=== PATIENT | female | born 1975 | race African-American/Black ===

== ENCOUNTER 2016-06-24 06:44 | Emergency (ER) | payer OTHER ==
--- NOTE | ~2016-06-24 | CT4 ---
[facility] A Service of [facility] & [facility] RADIOLOGY TEXT RESULTS PATIENT: EMMETT LEMA LOCATION: SED : 79 UNIT #: [id number] AGE: [address]: Varun Wong MD SEX: F ORDER DR: [id number] [address] [address] [id number] E MR#: [id number] Acc #: [id number] NAME: EMMETT LEMA : 1975 SEX: F STUDY DATE/TIME: 06/24/2016 7:30 UNIT: SED ROOM: STUDY DESCRIPTION: CT Abd and Pelv Wo Cont Attending Physician: Varun Wong M.D. Ordering Physician: Varun Wong M.D. Primary Care Physician: Jeremy Kincaid M.D. MEDICAL IMAGING REPORT This report is preliminary unless electronic signature is present. EXAM CT abdomen and pelvis 06/24/2016 HISTORY Pain. Lower right middle of back pain, flank pain began last night. TECHNIQUE This CT examination was performed with one or more of the following radiation dose reduction techniques: automatic exposure control, adjustment of mA and/or kV according to patient size, and iterative reconstruction. FINDINGS CT abdomen and pelvis performed without administration of oral or intravenous contrast. Comparison to contrast-enhanced examination 10/06/2014. The lung bases are clear. Inferior heart and pericardium unremarkable. Liver, gallbladder, spleen, pancreas, adrenal glands unremarkable. No renal calculi or obstruction. No ureteral calculi. There are multiple pelvic calcifications felt to represent phleboliths. CT PELVIS: Urinary bladder unremarkable. Calcified uterine fibroid stable. Trace free fluid in pelvis. Probably physiologic in nature and not a drainable fluid collection. No suspicious adnexal findings. No pelvic or retroperitoneal adenopathy. The distal esophagus, stomach, small bowel and appendix are unremarkable. Colon shows uncomplicated diverticulosis. There is evidence of prior sigmoid resection. No abnormal soft tissue at the anastomotic line. Unopacified vascular structures unremarkable. Bony structures unremarkable. IMPRESSION 1. No clearly acute abnormality is seen in the abdomen or pelvis. 2. No renal calculi or obstruction. No secondary signs of recent stone passage. [facility] A Service of [facility] RADIOLOGY TEXT RESULTS PATIENT: EMMETT LEMA LOCATION: SED : 79 UNIT #: [id number] AGE: [address]: Varun Wong MD SEX: F ORDER DR: 3. Gallbladder, pancreas, appendix normal. 4. Uncomplicated colonic diverticulosis. Evidence of prior sigmoid colon resection. No abnormal soft tissue at anastomotic line. 5. Trace free fluid in pelvis likely physiologic in nature. 6. Stable appearance of calcified uterine fibroid. Dictated by... Varun Wong M.D. THIS IS AN ELECTRONICALLY VERIFIED REPORT Varun Wong M.D. at 06/25/2016 3:50 PM WES/josias TD: 06/24/2016 10:30 JOB #: [id number] MEDICAL IMAGING REPORT Page 1 of 1
[~2016-06-24 06:44] MED LIST: FLEXERIL PO; METOPROLOL SUC100 MG PO; PEPCID AC20 M2 PO; PREDNISONE PO; PROCARDIA XL PO; VOLTAREN75 MG PO; WELLBUTRIN
[2016-06-24 07:09] LABS: BASOPHIL# 0.1 X10e3 (0-0.3); EOSINOPHIL# 0.3 X10e3 (0-0.7); EOSINOPHIL% 3.2 % (0.0-7.0); HEMATOCRIT 43.7 % (35.0-45.0); LYMPHOCYTE# 2.8 X10e3 (1.0-3.5); LYMPHOCYTE% 31.7 % (17.0-45.0); MEAN CELL VOLUME 97.2 FL (83-96); MEAN CORPUSCULAR HEMOGLOBIN 33.3 PG (28-34); MEAN CORPUSCULAR HGB CONC 34.3 g/dL (30-36); MEAN PLATELET VOLUME 7.4 FL (6.5-11.5); MONOCYTE# 0.6 X10e3 (0-1.0); MONOCYTE% 6.3 % (3.0-12.0); NEUTROPHIL# 5.1 X10e3 (1.5-7.1); NEUTROPHIL% 57.8 % (40-75); PLATELET COUNT 306 X10e3 (140-420); WHITE BLOOD COUNT 8.8 X10e3 (4.0-10.5)
[2016-06-24 07:16] LABS: DIFF IND NO
[2016-06-24 07:27] LABS: BUN/CREATININE RATIO 15.55; CREATININE SERUM 0.9 mg/dL (0.6-1.4); GLOM FILT RATE Estimated 93.4 mL/min (>60); POTASSIUM 3.8 mmol/L (3.5-5.1)
[2016-06-24 07:56] LABS: URINE SOURCE CLEAN CATCH
[2016-06-24 07:59] LABS: URINE APPEARANCE CLEAR; URINE BILIRUBIN NEG (NEG); URINE BLOOD NEG (NEG); URINE COLOR YELLOW; URINE GLUCOSE NEG (NORM); URINE KETONE NEG (NEG); URINE LEUKOCYTE ESTERASE NEG (NEG); URINE NITRATE POS (NEG); URINE PH 5.5 (5-8); URINE PROTEIN NEG (NEG); URINE UROBILINOGEN 0.2 MG/DL (NORM)
[2016-06-24 08:08] LABS: MICRO INDICATED? YES
[2016-06-24 08:10] LABS: CULTURE INDICATED? YES; URINE BACTERIA 4+ (NEG); URINE RBC 0-2 /[HPF] (0-2); URINE SQUAMOUS EPITHELIAL CELL FEW /[HPF]; URINE WBC 0-2 /[HPF] (0-5)
== END 2016-06-24 08:53 | disposition home or self-care (01) ==
LOC: SED 06:44
PROVIDERS: Emergency Medicine
DX: N30.00 Acute cystitis without hematuria (principal); F17.200 Nicotine dependence, unspecified, uncomplicated; Z87.74 Personal history of (corrected) congenital malformations of heart and circulatory system
CPT/HCPCS: 74176; 80048; 81003; 84703; 85025; 87086; 87088; 87186; 96361; 96365; 96375; 99284; J0696; J1170; J1885